=== PATIENT | female | born 1980 ===

== ENCOUNTER 2022-09-12 05:58 | Day surgery (SDC) | payer OTHER ==
[~2022-09-12] VITALS: Ht 165.1 cm; Wt 52.2 kg
[~2022-09-12 05:58] MED LIST: CLONAZEPAM0.5 MG PO; DEPAKOTE ER250 MG PO; RESTORIL30 M1 PO; SYNTHROID75 MCG PO
[2022-09-12] MEDS ORDERED: CEFADROXIL500 MG PO (11:48)
[2022-09-12] MEDS ORDERED: CONZIP100 MG PO (11:54)
== END 2022-09-12 17:20 | disposition home or self-care (01) ==
LOC: CIR.AMB 05:58
PROVIDERS: ATTEND Specialist
DX: K80.10 Calculus of gallbladder with chronic cholecystitis without obstruction (principal); Z88.6 Allergy status to analgesic agent; Z20.822 Contact with and (suspected) exposure to COVID-19